=== PATIENT | female | born 2000 | race African-American/Black ===

== ENCOUNTER 2024-01-05 22:18 | Emergency (ER) | payer MEDICAID ==
[~2024-01-05] VITALS: Ht 160 cm; Wt 96.0 kg
[2024-01-05 22:39] VITALS: TEMP 98.6; O2SAT 100
[2024-01-06] MEDS: HYDROCODONE/ACETAMINOPHEN 5/325MG TABLET PO STA (01:57)
[2024-01-06] MEDS ORDERED: NAPR-681 PO (04:01)
[2024-01-06] MEDS ORDERED: CYCL5TAB MT (04:01)
[2024-01-06 04:13] VITALS: BP 134/91; PULSE 86; RESP 18
== END 2024-01-06 04:14 | disposition home or self-care (01) ==
LOC: ER 22:18
DX: S00.93XA Contusion of unspecified part of head, initial encounter (principal); M25.561 Pain in right knee; V49.40XA Driver injured in collision with unspecified motor vehicles in traffic accident, initial encounter; Y93.89 Activity, other specified; Y92.89 Other specified places as the place of occurrence of the external cause; Y99.8 Other external cause status
CPT/HCPCS: 73562; 99284